=== PATIENT | female | born 1970 | race Caucasian/White ===

== ENCOUNTER 2024-07-28 09:07 | Emergency (ER) | payer OTHER, SELFPAY ==
[2024-07-28 09:11] VITALS: BP 165/96
[2024-07-28 09:19] VITALS: BMI 17.0
[2024-07-28] MEDS: TYLENOL 1000 MG PO (09:36)
--- NOTE | 2024-07-28 09:36 | ED.GENMED ---
History of Present Illness
General
Chief Complaint: Headache
Time Seen by Provider: 07/28/24 09:13
History of Present Illness
History of Present Illness:
53-year-old female with history of heroin abuse, last use yesterday morning, presenting from correctional facility for chills and headache. Patient was post go to court today and started complaining of headache and chills, brought to the ER for
further evaluation. On arrival, patient notes that she signed out AMA from [facility] recently, and notes that she was admitted for 'endocarditis '. She denies chest pain or difficulty breathing. She notes shaking, chills, headache. She believes
that she is in withdrawal. She reports that she left [facility] because they were not appropriately treating her withdrawal. She reports that she had a positive blood culture while at [facility]. Denies any cardiac imaging. Denies additional acute
medical complaints
Phy Exam
Physical Exam
Physical Exam:
General: No acute distress, tremulous
HEENT: protecting airway
Neck: appears supple
CV: Normal heart rate, regular rhythm
Resp: No accessory muscle use, no increased work of breathing, lungs clear to auscultation bilaterally
Abd: Soft and non-distended, no tenderness to palpation
Extremities: No deformities, no swelling, no erythema. Multiple track cruz to bilateral upper extremities. Signs of healing right upper extremity abscess, status post suspected I&D
Neuro: alert, no focal neurologic deficit
: deferred
Rectal: deferred
Psych: Normal affect
Skin: Intact
Sepsis
Sepsis Screening
Sepsis Assessment: Sepsis Ruled Out
Sepsis Screen
Sepsis Screen: Sepsis Ruled Out
Date: 07/28/24
Time: 15:50
Course
Orders/Labs/Results
Orders:
Orders
07/28/24 09:09
EKG [Electrocardiogram (*1)] Urgent
Reason for Study: Palpitations
07/28/24 09:10
EKG- Treatment ONCE
07/28/24 09:16
COVID-19 Antigen Urgent
Source: Nasal Swab
Influenza A+B Rapid Molecular Urgent
CHRISTIANO Source: Nasal Swab
Specimen Description:
07/28/24 09:25
0.9% Sodium Chloride 1000 ml [Nss] 1,000 ml IV BOLUS
Acetaminophen [Tylenol] 1,000 mg PO NOW STA
HYDROmorphone [Dilaudid] 1 mg IV NOW STA
07/28/24 09:26
CR Chest - 2 Views Urgent
Comment:
Reason For Exam: cough
07/28/24 09:57
Complete Blood Count/With Diff Urgent
Comprehensive Metabolic Panel Urgent
Lactic Acid Q4H
Comment: CANCEL 2nd LACTIC ACID IF 1st LACTIC ACID IS LESS THAN 2
Troponin I Urgent
07/28/24 10:03
Clonidine [Catapres] 0.2 mg PO NOW STA
07/28/24 11:20
Urinalysis Reflex To Culture Urgent
Date Specimen was Collected: 07/28/24
Time Specimen was Collected: 11:18
Urine Microscopic Reflex Cult Urgent
Urine Culture Urgent
CHRISTIANO Source: U
Specimen Description:
Date Specimen was Collected: 07/28/24
Time Specimen was Collected: 11:18
07/28/24 12:01
HYDROmorphone [Dilaudid] 0.5 mg IV NOW STA
Abnormal Lab Results
07/28/24 07/28/24
09:57 11:20
Creatinine 0.5 L mg/dL
(0.6-1.0)
Glucose 109 H mg/dl
(70-99)
AST 39 H U/L
(14-36)
Leukocyte Esterase Rfl 3+ A
(Negative)
Urine WBC (Reflex) 11-15 A /HPF
(0-5)
Urine Bacteria (Reflex) Few A
(Negative)
Urine Albumin (Reflex) 1+ A
(Neg - Trace)
07/28/24 09:57
07/28/24 09:57
Vital Signs
Initial and Last Documented VS:
Initial Vital Signs
Pulse Resp BP Pulse Ox
77 24 165/96 99
07/28/24 09:11 07/28/24 09:11 07/28/24 09:11 07/28/24 09:11
Last Documented Vital Signs
Temp Pulse Resp BP Pulse Ox
99.7 F 70 18 144/84 97
07/28/24 09:15 07/28/24 12:05 07/28/24 12:05 07/28/24 12:05 07/28/24 12:05
MDM/Problems Addressed
MDM/Problems Addressed:
53-year-old female with history of opiate abuse presenting for chills and headache. Vital signs are significant for mild hypertension and borderline low-grade temperature orally.
On exam, patient is resting comfortably, no acute distress. She is tremulous. She reports headache, chills, mild cough. Respiratory infection is a consideration including flu or COVID versus pneumonia. Patient without meningismus without concern
for meningitis. No present signs of acute skin infection. EKG obtained, sinus rhythm without acute evidence of ischemia or arrhythmia. Was able to access [facility], did review patient's hospitalization at [facility] from 07/19 to 07/21. Patient did sign
out AGAINST MEDICAL ADVICE. She did have a blood culture that grew staph stimulans, however was suspected to be a contaminant. Patient during her hospitalization was treated for her abscess, received antibiotics for 1 day, report without
significant concern for true bacteremia. Upon discharge, patient did return to a hospital on 07/25 for drug overdose, was subsequently discharged. No mention during hospitalizations of endocarditis. Will obtain laboratory analysis and treat
patient's withdrawal. Will also start patient IV fluids to continue to closely monitor.
10:00 -patient is flu positive, consistent with symptoms. At this time again lower suspicion for endocarditis
11:30 -patient without leukocytosis. Normal lactic acid. At this time without any criteria for sepsis. No indication for blood cultures. Vital signs remained stable. Chest x-ray shows possible opacity, however suspect at this time viral
pneumonia. Known influenza positive. There is also mention of an age-indeterminate T12 fracture. On review of EMR on [facility], this is known. At this time feel stable for discharge with continued outpatient supportive therapy for influenza and
management of her withdrawal at her facility. Return precautions discussed.
*EKG
Interpreted by ED Provider?: Yes
EKG Intrepretation Date: 07/28/24
EKG Intrepretation Time: 09:39
Interpretation: normal
Comparison EKG: no changes (09/23/22)
Heart Rate: 83
Rate: normal
Rhythm: sinus
[place]: normal axis
Interval: normal interval
QRS Pattern: normal QRS
Ischemia: no ischemia
*Critical Care Note
Total Time (30-74mins, 75-104mins- exclusive of procedures): Not Applicable
ED Attending Note
-
Portions of this chart may have been created with voice recognition software.� Occasional wrong word or��sound alike� substitutions may have occurred due to the inherent limitations of voice recognition software.
Discharge Plan
Departure
Patient Disposition: Home (Routine Discharge)
Date of Disposition: 07/28/24
Time of Disposition: 12:01
Patient with high blood pressure during this ER visit?: Yes
Condition: Good
Discharge Problem:
Influenza A, Opioid withdrawal
Instructions: Drug Withdrawal (DC), Flu in adults - ED discharge instructions
Referrals:
[facility] [Family Provider] -
Activity Restrictions/Additional Instructions:
You were seen in the emergency department for headache and chills
You were found to have the flu, which is consistent with your symptoms. Please take Tylenol and Motrin as needed for your symptoms. We also suspect that you are in opiate withdrawal. Please reach out to the medical staff at your facility
regarding treatment of your withdrawal.
Please follow-up closely with your primary care physician.
Return to the emergency department for any worsening of your symptoms, or any development of chest pain, difficulty breathing, abdominal pain with persistent vomiting and inability to tolerate food or liquid by mouth (concern for dehydration),
weakness, headache or confusion, fever greater than 100.4, or any additional symptoms that are concerning to you.
Thank you for choosing [facility].
Interventions
Interventions:
*Risk Screen - Suicide Last Done: 07/28/24 09:20
*General Assessment Last Done: 07/28/24 12:36
*Neglect/Abuse Screening Last Done: 07/28/24 09:20
ED- Fall Risk Assessment Last Done: 07/28/24 12:36
*ED COVID-19 Vaccine History Last Done: 07/28/24 12:36
*Nursing Disposition Last Done: 07/28/24 12:36
ED- Neurological Assessment Last Done: 07/28/24 12:15
Discharge Date and Time
Discharge Date/Time: 07/28/24 12:36
Print Language: ARMENIAN
[2024-07-28 10:01] LABS: COVID-19 Antigen Negative (Negative)
[2024-07-28 10:07] LABS: % Basophils 0.3 % (0-2); % Eosinophils 0.2 % (0-6); % Immature Granulocytes 0.3 % (0-0.5); % Lymphocytes 21.7 % (20.5-51.1); % Neutrophils 73.5 % (42.2-75.2); Absolute Lymphocytes 1.4 10^3/uL (1.2-3.4); Absolute Monocytes 0.3 10^3/uL (0.1-0.6); Absolute Neutrophils 4.6 10^3/uL (1.4-6.5); Hematocrit 37.9 % (37.0-47.0); Hemoglobin 12.6 g/dL (12.0-16.0); Mean Corp Hgb Conc. 33.2 g/dL (33.0-37.0); Mean Corpuscular Hgb 28.6 pg (27.0-31.0); Mean Corpuscular Volume 86.1 fL (81.0-99.0); Mean Platelet Volume 9.3 fL (7.4-10.4); Nucleated Red Blood Cells % 0 %; Platelet Count 321 10^3/uL (130-400); Red Cell Dist. Width 13.3 % (11.5-14.5); White Blood Cell Count 6.3 10^3/uL (4.8-10.8)
[2024-07-28] MEDS: CATAPRES 0.2 MG PO (10:07)
[2024-07-28] MEDS: DILAUDID 1 MG IV (10:07)
[2024-07-28] MEDS: NSS 1000 IV (10:10)
[2024-07-28 10:20] LABS: Lactic Acid 1.8 mmol/L (0.7-2.0)
[2024-07-28 10:21] LABS: ALT (SGPT) 27 U/L (0-35); AST (SGOT) 39 U/L (14-36); Albumin 3.9 g/dl (3.5-5.0); Alkaline Phosphatase 122 U/L (38-126); Blood Urea Nitrogen 12 mg/dl (7-17); Carbon Dioxide 22 mmol/L (22-30); Chloride 104 mmol/L (98-107); Estimated Creatinine Clearance 76 ml/min; Glucose 109 mg/dl (70-99); Potassium 3.9 mmol/L (3.5-5.1); Sodium 138 mmol/L (135-145); Total Bilirubin 0.9 mg/dl (0.2-1.3); Total Protein 7.3 g/dl (6.3-8.2); eGFR > 60.00
[2024-07-28 10:31] LABS: Troponin I < 0.012 ng/ml
[2024-07-28 11:33] LABS: Urine Albumin 1+ (Neg - Trace); Urine Bilirubin Negative (Negative); Urine Character Clear (Clear); Urine Color Yellow; Urine Glucose Negative (Negative); Urine Ketone Negative (Negative); Urine Leukocyte 3+ (Negative); Urine Nitrite Negative (Negative); Urine Occult Blood Negative (Negative); Urine Urobilinogen Negative (Neg - 1+)
[2024-07-28 11:51] LABS: Urine Mucus Few; Urine Squamous Cell >30 /LPF (Few)
[2024-07-28 11:52] LABS: Urine Amorphous Seen
[2024-07-28 11:55] LABS: Urine Red Blood Cell 0-2 /HPF (0-2)
[2024-07-28 11:56] LABS: Urine Bacteria Few (Negative)
[2024-07-28 12:05] VITALS: BP 144/84
[2024-07-28] MEDS: DILAUDID 0.5 MG IV (12:11)
== END 2024-07-28 12:36 ==
LOC: EMR 09:07
PROVIDERS: EMERGENCY PHYSICIAN Student in an Organized Health Care Education/Training Program
DX: J10.1 Influenza due to other identified influenza virus with other respiratory manifestations (principal); F11.23 Opioid dependence with withdrawal; M48.54XA Collapsed vertebra, not elsewhere classified, thoracic region, initial encounter for fracture; Z11.52 Encounter for screening for COVID-19
CPT/HCPCS: 96374; 96376; 96361; 99284; 71046; 80053; 81003; 81015; 83605; 84484; 85025; 87086; 87502; 87811; 93005

== ENCOUNTER 2024-07-31 01:55 | Observation (INO) | payer OTHER, SELFPAY ==
[2024-07-30 21:11] VITALS: BP 163/96
--- NOTE | 2024-07-30 21:45 | ED.GENMED ---
History of Present Illness
General
Chief Complaint: Catheter/Tube Problem
Source: patient and records
Time Seen by Provider: 07/30/24 21:28
History of Present Illness
History of Present Illness:
53yoF with a history of IV drug use presenting from [facility] requesting for a midline catheter to be placed for IV antibiotics. Patient was hospitalized at [facility] last week for bacteremia and concern for endocarditis.
Blood cultures grew out staph stimulans. She left [facility] last week. [facility] and last dose of IV heroin was 3 days ago. Patient reports that she feels very sick. She feels warm and has been having fevers. Her heart rate and
blood pressure are also elevated. She was seen in the ED yesterday for her symptoms and did test positive for influenza B. White count and lactate were normal at that time. Per discussion with nursing staff at the [facility] facility, plan was
to start patient on IV vancomycin to treat her endocarditis and to try to arrange for outpatient cardiology/ID consultations.
Phy Exam
General Physical Exam
General Presentation: mild distress
General Skin: warm and dry
General Habitus: normal
General Mental: alert
ENT Exam
ENT Exam: normocephalic
Cardiovascular Exam
Cardiovascular Exam: regular rate/rhythm and no murmur
Pulmonary Exam
Pulmonary Exam: lungs clear, no respiratory distress, no rales, no crackles and no rhonchi
Neurological Exam
Neurological Exam: alert
[place] Coma Scale
Eye Opening: Spontaneous
Verbal Response: Oriented
Motor Response: Obeys Commands
GCS Total Score: 15
Skin Exam
Skin Exam: normal color and warm/dry
Psychiatric Exam
Psychiatric Exam: anxious
Course
Orders/Labs/Results
Orders:
Orders
07/30/24 21:52
0.9% Sodium Chloride 1000 ml [Nss] 1,000 ml IV BOLUS
07/30/24 22:04
Vancomycin 1 Gram/200 ml [Vancocin] 1 gram in 200 ml IV NOW
07/30/24 22:19
Complete Blood Count/With Diff Urgent
Comprehensive Metabolic Panel Urgent
Lactate Level [Lactic Acid] Urgent
Blood Culture Q30M
CHRISTIANO Source: Blood/Venous
Specimen Description:
Blood Culture Q30M
CHRISTIANO Source: Blood/Venous
Specimen Description:
07/30/24 22:25
Clonidine [Catapres] 0.1 mg PO NOW STA
07/30/24 22:32
Buprenorphine [Subutex] 8 mg SL ONCE ONE
07/30/24 23:00
Flush (0.9% Sodium Chloride) [Flush (Nss)] See Dose Instructions IV PER PROTOCOL
07/30/24 23:48
Admit/Transfer Patient As Directed
Co-Sign Provider:
Level of Care: Observation services
Assign to:: Medical/Surgical
Physician / Group: Jl Jack
Diagnosis: suspected endocarditis
PRN Pain Medication Management As Directed
May give lesser potent ordered pain med per pt: Yes
preference::
Protocol:: Medication orders for pain may be administered in a
manner that supports deferring to patient preference
when the pt is:
- Requesting an ordered lesser potent pain medication.
Least to most potent pain medications are defined
as: acetaminophen < NSAID < tramadol < opioids
(morphine, oxycodone, hydromorphone).
- Requesting a lesser dose of the same medication IF
ORDERED.
- Requesting a less intrusive route of administration
if both routes are prescribed by the provider (PO <
IV).
07/30/24 23:53
Code Status As Directed
Resuscitation Status: Do not resuscitate
Reached after discussion with pt or family/Healthcare POA: Yes
Decision communicated with: patient
DNR Bracelet Application ONCE
Abnormal Lab Results
07/30/24
22:19
MCHC 32.7 L g/dL
(33.0-37.0)
Plt Count 419 H D 10^3/uL
(130-400)
BUN 20 H mg/dl
(7-17)
Glucose 110 H mg/dl
(70-99)
Lactic Acid 2.7 H mmol/L
(0.7-2.0)
07/30/24 22:19
07/30/24 22:19
Vital Signs
Initial and Last Documented VS:
Initial Vital Signs
BP Pulse Ox
163/96 99
07/30/24 21:11 07/30/24 21:11
Last Documented Vital Signs
Temp Pulse Resp BP Pulse Ox
97.5 F 64 18 166/101 100
07/30/24 21:54 07/30/24 23:28 07/30/24 23:28 07/30/24 23:23 07/30/24 22:18
MDM/Problems Addressed
Differential Diagnosis Includes:
53yoF with a history of IVDU here for midline placement. Recently left AMA from [facility] last week after an admission for bacteremia. There was apparent concern for endocarditis although no EMILIE was performed. Seen in ED yesterday for the same and
tested positive for influenza B. VSS. She appears uncomfortable and reports feeling very ill. Differential diagnosis includes but is not limited to: Influenza, bacteremia, skin contaminant, endocarditis, opioid withdrawal
I called the medical office at [facility] for further information. Tentative plan was for patient to start IV vancomycin today although they could not place IV. Vancomycin ordered until 08/09/24 but patient has not seen ID
since leaving AM last week. The staff at the long term are attempting to arrange outpatient EMILIE currently. Unclear if patient truly needs IV antibiotics and if her positive blood culture last week was 2/2 skin contaminants. Will send repeat blood
cultures and lactate today. Will admit for ID evaluation to formalize plan. IV vancomycin ordered.
*Critical Care Note
Total Time (30-74mins, 75-104mins- exclusive of procedures): Not Applicable
ED Attending Note
-
Portions of this chart may have been created with voice recognition software.� Occasional wrong word or��sound alike� substitutions may have occurred due to the inherent limitations of voice recognition software.
Discharge Plan
Departure
Patient Disposition: Admit
Date of Disposition: 07/30/24
Time of Disposition: 22:37
Presentation/result/management discussed w/ accepting MD/DO: Hospitalist
Discharge Problem:
Bacteremia
Prescriptions:
No Action
loperamide [Anti-Diarrheal (loperamide)] 2 mg Capsule
2 mg PO TIDPRN PRN (Reason: diarrhea)
ondansetron HCl 4 mg Tablet
4 mg PO TIDPRN PRN (Reason: nausea)
acetaminophen-codeine 300-30 mg Tablet
1 tab PO .TAPER
Patient Comments:
07/28/24-07/30/24: 2 tab TID, 07/31/24-08/01/24: 2 tab BID, 08/02/24-08/03/24: 1 tab BID, 08/04/24-08/04/24: 1 tab HS
vancomycin 1,000 mg Recon Soln
1 g IV BID
clonidine HCl 0.1 mg Tablet
0.1 mg PO .TAPER
Patient Comments:
07/30/24-07/31/24: 0.1mg TID, 08/01/24-08/02/24: 0.1mg BID, 08/03/24-08/04/24: 0.05mg BID
Referrals:
[facility] [Family Provider] -
Interventions
Interventions:
*Risk Screen - Suicide Last Done: 07/30/24 21:04
*General Assessment Last Done: 07/30/24 21:04
*Neglect/Abuse Screening Last Done: 07/30/24 21:04
ED- Fall Risk Assessment Last Done: 07/30/24 21:05
*ED COVID-19 Vaccine History Last Done: 07/30/24 21:04
OE-Mxmbse-Fkkohktcjp Assessment Last Done: 07/30/24 21:04
ED-Female Genitourinary Assessment Last Done: 07/30/24 21:04
Discharge Date and Time
Print Language: DANISH
[2024-07-30 21:53] VITALS: BMI 18.1
[2024-07-30 22:29] VITALS: BP 157/101
[2024-07-30 22:32] LABS: % Basophils 0.3 % (0-2); % Eosinophils 0.7 % (0-6); % Immature Granulocytes 0.3 % (0-0.5); % Lymphocytes 31.8 % (20.5-51.1); % Monocytes 6.1 % (1.7-9.3); % Neutrophils 60.8 % (42.2-75.2); Absolute Eosinophils 0.1 10^3/uL (0-0.7); Absolute Lymphocytes 2.9 10^3/uL (1.2-3.4); Absolute Monocytes 0.6 10^3/uL (0.1-0.6); Absolute Neutrophils 5.6 10^3/uL (1.4-6.5); Hematocrit 37.9 % (37.0-47.0); Hemoglobin 12.4 g/dL (12.0-16.0); Mean Corp Hgb Conc. 32.7 g/dL (33.0-37.0); Mean Corpuscular Hgb 28.4 pg (27.0-31.0); Mean Corpuscular Volume 86.9 fL (81.0-99.0); Mean Platelet Volume 9.5 fL (7.4-10.4); Nucleated Red Blood Cells % 0 %; Platelet Count 419 10^3/uL (130-400); Red Blood Cell Count 4.36 10^6/uL (4.20-5.40); Red Cell Dist. Width 13.8 % (11.5-14.5); White Blood Cell Count 9.2 10^3/uL (4.8-10.8)
[2024-07-30 22:42] LABS: Lactic Acid 2.7 mmol/L (0.7-2.0)
[2024-07-30 22:59] LABS: ALT (SGPT) 24 U/L (0-35); AST (SGOT) 34 U/L (14-36); Albumin 3.8 g/dl (3.5-5.0); Alkaline Phosphatase 98 U/L (38-126); Blood Urea Nitrogen 20 mg/dl (7-17); Calcium 9.4 mg/dl (8.4-10.2); Carbon Dioxide 27 mmol/L (22-30); Chloride 104 mmol/L (98-107); Estimated Creatinine Clearance 81 ml/min; Glucose 110 mg/dl (70-99); Potassium 3.6 mmol/L (3.5-5.1); Sodium 142 mmol/L (135-145); Total Bilirubin 0.7 mg/dl (0.2-1.3); Total Protein 7.2 g/dl (6.3-8.2); eGFR > 60.00
[2024-07-30 23:00] VITALS: BP 166/101
--- NOTE | 2024-07-30 23:18 | HPS.HSE ---
Addendum entered and electronically signed by Jl Jack DO 07/31/24 00:11:
Patient seen and examined independently. Agree with findings and plan as set forth by PRECIOUS Singh.
Patient is a 53y F with PMH significant for IVDA / substance abuse who presented from [facility] for placement of midline. Patient was hospitalized last week at [facility] for reported 'endocarditis' (per patient). She left AMA after 3
days to 'get high'. She last used IV fentanyl on Sunday AM. She was subsequently incarcerated. She was seen here in the ED on 07/28 and diagnosed with Influenza B and discharged back to skilled nursing. ED records at that time include review of [facility] data
which notes no significant concern for endocarditis. Patient had single culture positive for staph stimulans which was presumed contaminant. She received abx for only one day while there before they were discontinued.
She had a subsequent visit at [facility] during which she was treated for overdose. No mention of endocarditis was made during this stay.
Patient was started on IV Vanco at [facility]. She was sent in today for line placement.
Afebrile. No leukocytosis.
She does complain of chills, headache, myalagias, etc and notes that she is 'withdrawing'. Though she appears comfortable in the ED.
Ass:
Bacteremia / ? Contaminant v Endocarditis
IVDA / Substance Use Disorder
Opioid Withdrawal
Mild Lactate Elevation
Plan:
Observe overnight for further evaluation.
Midline has been placed. Continue Vanco.
Obtain full record from [facility] for review prior to any additional studies.
Repeat BCx here have been sent.
ID eval for any additional recommendations.
At present, it is not clear that patient has any suspicion (beyond her significant risk factors) for endocarditis.
Monitor and treat for any withdrawal syndromes.
Continue current meds / tapers from [facility].
Original Note:
Family Physician
-
Family Physician: Facility [facility]
Chief Complaint
-
IV access
History of Present Illness
Patients a 53-year-old female with past medical history significant for IVDA and endocarditis who presented to [facility] ED for midline placement as requested by correction facility. Patient reports she was in [facility] last week for blood
infection and endocarditis when she left AMA because she was withdrawing and wanted to get high. Patient was since picked up and incarcerated at [facility]. [facility] a plan of care to treat
endocarditis with IV vanco and sent patient to ED for midline placement. Denies patient denies any current symptoms at this time. No dizziness, palpitations, fevers, chills, nausea, vomiting or diarrhea.
Medical History
Past Medical History
Past Medical History: Reports Other
Additional Past Medical History:
endocarditis
IVDA
Past Surgical History: Reports None
Social History
Tobacco: Smoker (20 pack year history )
Alcohol: None
Drug: IVDA (1 bundle per day since 2018 )
Personal: Single
Living: Homeless
Employment: Disabled
Family History
Family History: Other (Mother: DM, CAD; Father: DM, CAD)
Allergies / Home Medications
Allergies reflects when Allergies were last updated in [facility].
Home Medications with original date entered in [facility]
Allergy/Medication List:
Allergies
Allergy/AdvReac Type Severity Reaction Status Date / Time
No Known Allergies Allergy Verified 07/30/24 21:02
Home Medications
acetaminophen 300 mg-codeine 30 mg tablet 1 tab PO .TAPER 07/30/24
clonidine HCl 0.1 mg tablet 0.1 mg PO .TAPER 07/30/24
loperamide 2 mg capsule (Anti-Diarrheal (loperamide)) 2 mg PO TIDPRN PRN diarrhea 07/30/24
ondansetron HCl 4 mg tablet 4 mg PO TIDPRN PRN nausea 07/30/24
vancomycin 1,000 mg intravenous injection 1 g IV BID 07/30/24
Review of Systems
-
History Source: Patient
Constitutional: Reports No Symptoms
EENT: Reports No Symptoms
Respiratory: Reports No Symptoms
Cardiac: Reports No Symptoms
Abdomen/GI: Reports No Symptoms
: Reports No Symptoms
Musculoskeletal: Reports No Symptoms
Skin: Reports No Symptoms
Neurological: Reports No Symptoms
Endocrine: Reports No Symptoms
Hematologic/Lymphatic: Reports No Symptoms
Psych: Reports No Symptoms
Physical Exam
Vital Signs
Vital Signs
Temp BP Pulse Ox
97.5 F 157/101 100
07/30/24 21:54 07/30/24 22:29 07/30/24 22:18
Physical Exam
General: Well Developed, Well Nourished, No Apparent Distress, Comfortable and Conversant
HEENT: NormoCephalic, Moist mucous membranes, Atraumatic, [place] Conjunctivae, Nose Appears Normal and Ears Appear Normal
Respiratory: Clear and Non Labored Respirations
Cardiac: S1/S2 and Regular Rhythm; No Murmur, Rub or Gallop
Breast: Deferred by me
GI: Soft, Non Tender, Non Distended and Normal Bowel Sounds; No Organomegaly
Rectal: Deferred by Provider
Genito-urinary: Deferred by me
Musculoskeletal: No Clubbing, No Cyanosis and No Edema
Skin: Warm and Lesions (patient with multiple open and healed areas from current and previous IVDA )
Neuro: Awake, Alert, AO x 3 and Nonfocal/grossly intact
Psych: Calm
Laboratory Results
-
07/30/24 22:19
07/30/24 22:19
Laboratory Results
Lactic Acid 2.7 mmol/L (0.7-2.0) H 07/30/24 22:19
Total Bilirubin 0.7 mg/dl (0.2-1.3) 07/30/24 22:19
AST 34 U/L (14-36) 07/30/24 22:19
ALT 24 U/L (0-35) 07/30/24 22:19
Alkaline Phosphatase 98 U/L (38-126) 07/30/24 22:19
Data Reviewed
-
Lab Data: Labs Reviewed by me (Lactic 2.7)
Impression/Plan
-
IMPRESSION/PLAN:
#presumed endocarditis
[facility] reporting recent endocarditis treatment at [facility] and patient left AMA, plan of care was to treat with IV vancomycin at facility
Lactic 2.7
- Admit to Med/Surg
- consult ID
- IV Vanco
- supportive care
- obtain records from [facility]
#IVDA
uses a bundle of fentanyl a day, last used 3 days ago
- COWS protocol
Code status: DNR
DVT Prophylaxis: Lovenox Sq
[2024-07-30] MEDS: SUBUTEX 8 MG SL (23:23)
[2024-07-30] MEDS: NSS 1000 IV (23:23)
[2024-07-30] MEDS: CATAPRES 0.1 MG PO (23:23)
[2024-07-30] MEDS: VANCOCIN 200 IV (23:23)
[2024-07-31] VITALS (11 sets, daily range): BP systolic 130–175; BP diastolic 80–107; BMI 18.1; BMI 16.9
[2024-07-31] MEDS: FLUSH (NSS) 1 FLUSH IV (02:33)
[2024-07-31 03:42] LABS: Amphetamines Negative (Negative); Barbiturates Negative (Negative); Benzodiazepines Negative (Negative); Buprenorphine Positive (Negative); Cocaine Negative (Negative); Marijuana Negative (Negative); Methadone Negative (Negative); Methamphetamines Negative (Negative); Opiates Positive (Negative); Phencyclidine Negative (Negative); Tricyclic Antidepressants Negative (Negative)
[2024-07-31 03:57] LABS: Fentanyl, Urine Positive (Negative)
[2024-07-31 07:30] LABS: Hematocrit 38.4 % (37.0-47.0); Hemoglobin 12.4 g/dL (12.0-16.0); Mean Corp Hgb Conc. 32.3 g/dL (33.0-37.0); Mean Corpuscular Hgb 28.4 pg (27.0-31.0); Mean Corpuscular Volume 87.9 fL (81.0-99.0); Mean Platelet Volume 9.6 fL (7.4-10.4); Platelet Count 377 10^3/uL (130-400); Red Blood Cell Count 4.37 10^6/uL (4.20-5.40); Red Cell Dist. Width 13.6 % (11.5-14.5); White Blood Cell Count 9.2 10^3/uL (4.8-10.8)
[2024-07-31 08:10] LABS: ALT (SGPT) 24 U/L (0-35); AST (SGOT) 37 U/L (14-36); Albumin 3.6 g/dl (3.5-5.0); Alkaline Phosphatase 93 U/L (38-126); Blood Urea Nitrogen 14 mg/dl (7-17); Calcium 8.9 mg/dl (8.4-10.2); Carbon Dioxide 23 mmol/L (22-30); Chloride 107 mmol/L (98-107); Direct Bilirubin 0.2 mg/dl (0.0-0.4); Estimated Creatinine Clearance 81 ml/min; Glucose 98 mg/dl (70-99); Potassium 3.9 mmol/L (3.5-5.1); Sodium 138 mmol/L (135-145); Total Protein 6.9 g/dl (6.3-8.2); eGFR > 60.00
--- NOTE | 2024-07-31 09:02 | PHA.VAN.IN ---
Assessment
- Assessment
Renal Function: Appears similar to baseline
AUC Dosing Plan
- Dosing Variables
Dosing Weight (kg): 55
Dosing CrCl (ml/min): 93
Vd coefficient (L/kg): 0.7
Utilized IBW for dosing weight and CrCl calculations given BMI < 20
- Empiric Dosing
Initial / Loading Dose: 1000mg - 07/30 23:23
Maintenance Regimen: Vanc 750mg Q12H - starting at 1800
Estimated AUC (mcg*h/mL): 497
Estimated Peak (mcg*h/mL): 31.2
Estimated Trough (mcg/ml): 12.7
Estimated Half Life (H): 8.5
- Monitoring
No levels ordered at this time: consider levels in next few days
Pharmacokinetics Vancomycin I
- -
Patient Age: 53
Patient Sex: Female
Vancomycin Day #: 1
Indication: Other
Requesting Provider: Rosalinda Thakur
Pertinent Antimicrobial Allergies:
NKDA
Height / Weight:
Height 5 ft 4 in
Actual Weight 47.8 kg
IBW in k.7
Pertinent Past Medical History: BMI ~18, IV FABRIZIO
- Vital Signs / Lab Results
Temp Pulse Resp BP Pulse Ox
97.5 F 82 18 153/95 99
07/30/24 21:54 07/31/24 06:00 07/30/24 23:28 07/31/24 06:00 07/31/24 05:15
Lab Results - Hematology
07/30/24 07/31/24
22:19 07:17
WBC 9.2 9.2
Lab Results - Chemistry
07/30/24 07/31/24
22:19 07:17
BUN 20 H 14
Creatinine 0.6 0.5 L
Estimated Creat Clear 81 81
Albumin 3.8 3.6
07/30/24
22:19
Lactic Acid 2.7 H
--- NOTE | 2024-07-31 09:13 | W.PN.HOSP.TC ---
Today's Communication/Plan
-
see plan
Assessment / Plan
Assessment / Plan
Impression:
IVDA
At risk of opiate withdrawal
Reported positive blood culture for Staphylococcus at [facility]
Influenza B +07/28
Plan:
Reported positive blood culture for Staphylococcus at admission to [facility] patient signed out AMA.
Has been on IV vancomycin for presumed bacteremia possible contamination at the [facility]
Presented for PICC line placement
Remains afebrile. Normal WBC
Nontoxic-appearing
Noted mild elevated lactic acid at 2.7
No clear indication for endovascular infection/IE
Obtain medical records from recent admission and [facility]
Repeat blood cultures pending
Continue IV vancomycin
ID consultation
Influenza B positive as of 07/28
Currently asymptomatic
Unclear benefit for Tamiflu at this point
IVDA
At risk for opioid withdrawal.
Start opiate withdrawal protocol with Suboxone
Anticipated Discharge: 24 - 48 hours
Subjective/Interval History
-
Date of Service: July 31, 2024
Objective Data
-
Labs:
Laboratory Results
07/30/24 07/31/24
22:19 07:17
WBC 9.2 9.2
Hgb 12.4 12.4
Hct 37.9 38.4
Plt Count 419 H D 377
Sodium 142 138
Potassium 3.6 3.9
Chloride 104 107
Carbon Dioxide 27 23
BUN 20 H 14
Creatinine 0.6 0.5 L
Glucose 110 H 98
Calcium 9.4 8.9
Total Bilirubin 0.7 1.0
AST 34 37 H
ALT 24 24
Alkaline Phosphatase 98 93
Vital Signs:
Vital Signs
Temp Pulse Resp BP Pulse Ox
97.5 F 82 18 153/95 99
07/30/24 21:54 07/31/24 06:00 07/30/24 23:28 07/31/24 06:00 07/31/24 05:15
Physical Exam
-
General: Well Developed and No Apparent Distress
HEENT: Normocephalic, Atraumatic and Moist Mucous Membranes
Respiratory: Clear to Auscultation
Cardiac: Regular Rhythm and S1/S2; Negative Murmur, Rub or Gallop
GI: Soft, Nontender, Nondistended and Normal Bowel Sounds; Negative Organomegaly
Rectal: Deferred by Provider
Musculoskeletal: No Clubbing, No Cyanosis and No Edema
Skin: Negative Rash
Neuro: Nonfocal/Grossly Intact
[2024-07-31] MEDS: CATAPRES 0.1 MG PO ×3 (09:29→21:13)
--- NOTE | 2024-07-31 10:41 | CM ---
CM reviewed medical records. Patient is currently incarcerated at [facility]. Patient was transferred to [facility] for midline placement to continue with IV antibiotics at [facility].
PLAN: IV antibiotics at [facility].
[2024-07-31] MEDS: SUBUTEX 8 MG SL (14:06)
--- NOTE | 2024-07-31 17:41 | CON.ID ---
Consultation
-
Date/Time Consultation Requested: 07/31/2024 0252
Date/Time Consultation Performed: 07/31/24 1700
Requesting Provider: Annabel Thakur
Performing Provider: Dr. Beavers
Reason for Consultation: History of bacteremia
Chief Complaint / Past History
History of Present Illness
Patricia Juan is a 53-year-old female being evaluated at the request of Annabel Thakur regarding a history of bacteremia. History is obtained from chart review, along with patient interview.
The patient has a significant past medical history of substance abuse and reports that she presented to [facility] on 07/23 when she developed fevers, chills with associated nausea and vomiting. At that time she denied any diarrhea.
She reports that during her stay she was found to have a bacteremia, with reported Staphylococcus simulans recovered. The degree of bacteremia is unclear (i.e. how many sets were positive). Evidently an echocardiogram was ordered, but she left AMA
from the hospital in order to use additional illicit drugs. Ultimately she was picked up by the authorities and incarcerated and [facility]. Once there, she was found to be influenza positive. She notes that she continues
to feel quite unwell. It appears on records from the correctional facility that she was on vancomycin, but antibiotics could not be given because no IV access was available. She was brought to the hospital for a midline placement, and further
workup.
Since admission she has been afebrile. She denies any current localizing pain.
Past History
Past Medical History: None
Past Surgical History: None
Allergy History:
No Known Allergies Allergy (Verified 07/30/24 21:02)
Medications Reviewed: Yes
Current Antibiotics:
Vancomycin (dosing per pharmacy)
Social History
Tobacco: Smoker (1 pack/day)
Alcohol: None
Drug: Narcotics and IVDA
Living: Alone
Employment: Not Employed
Review of Systems
Vital Signs
Temp Pulse Resp BP Pulse Ox
97.9 F 64 16 175/104 100
07/31/24 15:05 07/31/24 15:05 07/31/24 15:05 07/31/24 13:17 07/31/24 15:05
Physical Exam
Physical Exam
Constitutional: No Acute Distress, Comfortable, Chronically Ill, Non-toxic and Cachetic (Mild)
Eyes: Pupils Equal, Pupils Round, No Conjunctival Hemorrhage and Sclera Anicteric
Oral: Poor Dentition, No Thrush and No Ulcers
Cardiovascular: Regular Rate and S1/S2; Negative S3/S4 or Murmur
Pulmonary: Clear; Negative Wheezes or Rales
Gastrointestinal: Soft and Non Tender
Skin: Other (Multiple track cruz on extremities.)
Neurological: Awake and Alert
Psychological: Calm
Lab / Diagnostic Study Results
07/31/24 07:17
07/31/24 07:17
Abs Immat Gran (auto) 0.0 10^3/uL (0-0.05) 07/30/24 22:19
Absolute Neuts (auto) 5.6 10^3/uL (1.4-6.5) 07/30/24 22:19
Absolute Lymphs (auto) 2.9 10^3/uL (1.2-3.4) 07/30/24 22:19
Absolute Monos (auto) 0.6 10^3/uL (0.1-0.6) 07/30/24 22:19
Absolute Basos (auto) 0.0 10^3/uL (0-0.2) 07/30/24 22:19
Immature Gran % 0.3 % (0-0.5) 07/30/24 22:19
Neutrophils % 60.8 % (42.2-75.2) 07/30/24 22:19
Lymphocytes % 31.8 % (20.5-51.1) 07/30/24 22:19
Monocytes % 6.1 % (1.7-9.3) 07/30/24 22:19
Eosinophils % 0.7 % (0-6) 07/30/24 22:19
Basophils % 0.3 % (0-2) 07/30/24 22:19
Lactic Acid 2.7 mmol/L (0.7-2.0) H 07/30/24 22:19
Microbiology Results
Micro:
07/30/24 22:19 Blood Culture - Pending
Blood/Venous
07/30/24 22:19 Blood Culture - Pending
Blood/Venous
Assessment / Plan
Reported bacteremia from OSH
Influenza B positive
Substance abuse
Recommendations:
Old records have been requested from [facility]. Will review once obtained.
Continue with empiric vancomycin for the present.
Check ESR and CRP.
Depending on reviewed records, patient may need echocardiogram.
Follow pending blood cultures.
At present, patient appears clinically stable. No fevers, and no respiratory symptomatology. No need to initiate Tamiflu at present
Given IVDA; check hep C and HIV serology.
Further recommendations as additional data is returned.
Care Review
Plan reviewed with: Physician
[2024-07-31] MEDS: ZANAFLEX 2 MG PO (18:04)
[2024-07-31] MEDS: TYLENOL 650 MG PO (18:04)
[2024-07-31] MEDS: VANCOCIN 150 IV (18:07)
[2024-07-31] MEDS: LOVENOX 30 MG SC (18:48)
--- NOTE | 2024-08-01 00:52 | PTCARENOTE ---
Spoke with House Provider, Tyson Smith, about pt's blood pressure 160s/100s. No new orders at this time.
[2024-08-01 04:43] LABS: ALT (SGPT) 23 U/L (0-35); AST (SGOT) 33 U/L (14-36); Albumin 3.5 g/dl (3.5-5.0); Alkaline Phosphatase 100 U/L (38-126); Direct Bilirubin 0.2 mg/dl (0.0-0.4); Total Bilirubin 0.9 mg/dl (0.2-1.3); Total Protein 6.7 g/dl (6.3-8.2)
[2024-08-01 04:45] LABS: C-Reactive Protein < 5.00 mg/L (0.0-10.00)
[2024-08-01 05:30] LABS: Hepatitis C Antibody Reactive (Negative)
[2024-08-01] MEDS: VANCOCIN 150 IV (05:51)
[2024-08-01 07:25] VITALS: BP 162/106; BP 164/119; BP 173/119; PULSE 103; PULSE 115; PULSE 75
[2024-08-01 07:37] LABS: Erythrocyte Sed Rate 20 mm/hour (0-20)
[2024-08-01] MEDS: CATAPRES 0.1 MG PO ×2 (08:35→19:41)
[2024-08-01] MEDS: TYLENOL 650 MG PO ×2 (09:16→18:06)
--- NOTE | 2024-08-01 10:09 | PHA.VAN.FU ---
Vancomycin Assessment / Plan
- Assessment
Renal Function: Stable
WBC's are: WNL
In the past 24 hrs, patient has been: Afebrile
- Dosing Plan
Continue: 750mg q12h
- Monitoring Plan
No level(s) ordered at this time: Consider levels in next few days
- Follow Up
Pharmacy will continue to follow.
Vancomycin Follow UP
- -
Patient Age: 53
Patient Sex: Female
Vancomycin Day #: 2
Indication: Other
Requesting Provider: Rosalinda Thakur
Pertinent Antimicrobial Allergies:
NKDA
Height / Weight:
Height 5 ft 4 in
Actual Weight 44.622 kg
IBW in k.7
Pertinent Past Medical History: BMI ~18, IV FABRIZIO
- Vital Signs / Lab Results
Temp Pulse Resp BP Pulse Ox
98.4 F 75 16 162/106 99
08/01/24 07:25 08/01/24 07:25 08/01/24 07:25 08/01/24 07:25 08/01/24 07:25
Lab Results - Hematology
07/30/24 07/31/24
22:19 07:17
WBC 9.2 9.2
Lab Results - Chemistry
07/30/24 07/31/24 08/01/24
22:19 07:17 04:03
BUN 20 H 14
Creatinine 0.6 0.5 L
Estimated Creat Clear 81 81
Albumin 3.8 3.6 3.5
07/30/24
22:19
Lactic Acid 2.7 H
Microbiology Results
07/30/24 22:19 Blood Culture - Preliminary
Blood/Venous No Growth in 24 hours- Final report to follow
07/30/24 22:19 Blood Culture - Preliminary
Blood/Venous No Growth in 24 hours- Final report to follow
[2024-08-01 12:56] LABS: HIV Combo Negative (Negative)
[2024-08-01] MEDS: SUBUTEX 8 MG SL (13:32)
--- NOTE | 2024-08-01 14:13 | CM ---
CM reviewed chart, patient from [facility]. Call to medical, faxed midline information to [facility]. CM will continue to follow for all discharge planning needs.
Plan; return to [facility] with IV antibiotics
[facility]
Report: [phone]
--- NOTE | 2024-08-01 15:48 | W.PN.ID1 ---
Date of Service
Date of Service: August 01, 2024
Today's Communication
Continue vancomycin for now. Discontinue if echo is negative.
Assessment / Plan
Reported bacteremia from OSH
Influenza B positive
Substance abuse
Hepatitis C
Recommendations:
Old records have been requested from [facility]. Will review once obtained. (None send yet.)
ESR and CRP are normal, making the diagnosis of endocarditis much less likely.
Check echocardiogram. If negative, will discontinue further antibiotics.
At present, patient appears clinically stable. No fevers, and no respiratory symptomatology. No need to initiate Tamiflu at present
Hep C antibody positive. HIV negative.
����������������������������������������������������������
Chief Complaint
-: Bacteremia
Subjective / Review of Systems
Review of Systems: No Fever and No Chills
Vital Signs / Physical Exam
Vital Signs
Vital Signs
Temp Pulse Resp BP Pulse Ox
98.4 F 75 16 162/106 99
08/01/24 07:25 08/01/24 07:25 08/01/24 07:25 08/01/24 07:25 08/01/24 07:25
Physical Exam
Constitutional: No Acute Distress, Comfortable, Chronically Ill and Cachetic
Eyes: No Conjunctival Hemorrhage and Sclera Anicteric
Cardiovascular: S1/S2; Negative S3/S4 or Murmur
Pulmonary: Clear
Neurological: Awake and Alert
Psychological: Calm
Objective Data
Lab Data
Lab Results
07/31/24 07:17
07/31/24 07:17
ESR 20 mm/hour (0-20) 08/01/24 04:03
Estimated Creat Clear 81 ml/min 07/31/24 07:17
Lactic Acid 2.7 mmol/L (0.7-2.0) H 07/30/24 22:19
Total Bilirubin 0.9 mg/dl (0.2-1.3) 08/01/24 04:03
AST 33 U/L (14-36) 08/01/24 04:03
ALT 23 U/L (0-35) 08/01/24 04:03
Alkaline Phosphatase 100 U/L (38-126) 08/01/24 04:03
C-Reactive Protein < 5.00 mg/L (0.0-10.00) 08/01/24 04:03
Most recent labs reviewed.
Micro Results:
07/30/24 22:19 Blood Culture - Preliminary
Blood/Venous No Growth in 24 hours- Final report to follow
07/30/24 22:19 Blood Culture - Preliminary
Blood/Venous No Growth in 24 hours- Final report to follow
07/31/24 21:09 MRSA Screen - Pending
Nose
Care Review
Plan reviewed with: Physician (Hospitalist)
[2024-08-01 16:29] VITALS: BMI 16.9
[2024-08-01 16:41] VITALS: BP 183/111
--- NOTE | 2024-08-01 17:33 | W.DS.TRANS ---
DC Summary - [facility]
-
Discharge Instructions:
Discharge Diagnosis/Procedures IVDA with opiate withdrawal
Negative workup for endovascular infection.
Diet Regular
Instructions:
Stand-Alone Forms:
Changes to Home Medications: Yes
Discharge Medications:
DC Medications w/original date entered in [employer]
acetaminophen 300 mg-codeine 30 mg tablet 1 tab PO .TAPER Pain 07/30/24
clonidine HCl 0.1 mg tablet 0.1 mg PO .TAPER Opioid withdrawal 07/30/24
loperamide 2 mg capsule (Anti-Diarrheal (loperamide)) 2 mg PO TIDPRN PRN diarrhea 07/30/24
ondansetron HCl 4 mg tablet 4 mg PO TIDPRN PRN nausea 07/30/24
Home Medication Changes
Vancomycin has been discontinued with negative infectious disease workup.
Patient will continue opioid withdrawal protocol including Suboxone and clonidine.
Pending Results: No
[2024-08-01] MEDS: LOVENOX SC (18:30)
[2024-08-01 19:45] VITALS: BP 175/100
--- NOTE | 2024-08-01 19:45 | PTCARENOTE ---
194 [facility] renet[facility] spoke to Nurse Shoemaker over phone and reviewed discharge meds and instructions. Discharge papers given to guard at bedside. Awaiting wheelchair transport.
[2024-08-01 20:02] VITALS: BP 154/99
== END 2024-08-01 20:31 ==
LOC: 4 WEST ACU 01:55
PROVIDERS: Nurse Practitioner Family; Physician Assistant; ADMITTING PHYSICIAN Hospitalist; ATTENDING PHYSICIAN Internal Medicine; EMERGENCY PHYSICIAN Emergency Medicine; OTHER PHYSICIAN Internal Medicine Infectious Disease
DX: F11.13 Opioid abuse with withdrawal (principal); R50.9 Fever, unspecified; R78.81 Bacteremia; J10.1 Influenza due to other identified influenza virus with other respiratory manifestations; I38 Endocarditis, valve unspecified; F17.210 Nicotine dependence, cigarettes, uncomplicated; B95.8 Unspecified staphylococcus as the cause of diseases classified elsewhere; E87.20 Acidosis, unspecified; B19.20 Unspecified viral hepatitis C without hepatic coma; Z66 Do not resuscitate; Z59.00 Homelessness unspecified; Z83.3 Family history of diabetes mellitus; Z82.49 Family history of ischemic heart disease and other diseases of the circulatory system
CPT/HCPCS: 80048; 80053; 80076; 80306; 80307; 83605; 85025; 85027; 85652; 86140; 86803; 87040; 87070; 87389; 93306; 96365; 99284; G0378